=== PATIENT | female | born 1940 | race Caucasian/White ===

== ENCOUNTER → 2016-08-19 | Outpatient (CLI) | payer MEDICARE, BC | END | disposition home or self-care (01) | LOC: PCVCCLINIC 14:00 | PROVIDERS: ATTEND Internal Medicine | DX: I25.10 Atherosclerotic heart disease of native coronary artery without angina pectoris (principal); I42.9 Cardiomyopathy, unspecified; I12.9 Hypertensive chronic kidney disease with stage 1 through stage 4 chronic kidney disease, or unspecified chronic kidney disease; E78.5 Hyperlipidemia, unspecified; I33.0 Acute and subacute infective endocarditis; N18.2 Chronic kidney disease, stage 2 (mild); E11.9 Type 2 diabetes mellitus without complications; I44.7 Left bundle-branch block, unspecified; Z95.810 Presence of automatic (implantable) cardiac defibrillator; Z90.710 Acquired absence of both cervix and uterus; Z79.82 Long term (current) use of aspirin; Z79.899 Other long term (current) drug therapy; Z88.0 Allergy status to penicillin; Z88.1 Allergy status to other antibiotic agents; Z91.048 Other nonmedicinal substance allergy status; Z91.041 Radiographic dye allergy status | CPT/HCPCS: 80061; 93005; G0463 ==

== ENCOUNTER → 2017-02-21 | Outpatient (CLI) | payer MEDICARE, BC | END | disposition home or self-care (01) | LOC: PCVCCLINIC 14:04 | DX: I25.10 Atherosclerotic heart disease of native coronary artery without angina pectoris (principal); I42.8 Other cardiomyopathies; E78.5 Hyperlipidemia, unspecified; I33.0 Acute and subacute infective endocarditis; I12.9 Hypertensive chronic kidney disease with stage 1 through stage 4 chronic kidney disease, or unspecified chronic kidney disease; N18.2 Chronic kidney disease, stage 2 (mild); E11.22 Type 2 diabetes mellitus with diabetic chronic kidney disease; R94.31 Abnormal electrocardiogram [ECG] [EKG]; Z95.810 Presence of automatic (implantable) cardiac defibrillator; Z79.82 Long term (current) use of aspirin; Z79.899 Other long term (current) drug therapy | CPT/HCPCS: 80061; 93005; G0463 ==

== ENCOUNTER → 2017-07-17 | Outpatient (CLI) | payer MEDICARE, BC | END | disposition home or self-care (01) | LOC: PCVCCLINIC 12:41 | DX: I25.10 Atherosclerotic heart disease of native coronary artery without angina pectoris (principal); I12.9 Hypertensive chronic kidney disease with stage 1 through stage 4 chronic kidney disease, or unspecified chronic kidney disease; E11.22 Type 2 diabetes mellitus with diabetic chronic kidney disease; N18.2 Chronic kidney disease, stage 2 (mild); E78.5 Hyperlipidemia, unspecified; I42.8 Other cardiomyopathies; R94.31 Abnormal electrocardiogram [ECG] [EKG]; I33.0 Acute and subacute infective endocarditis; Z95.810 Presence of automatic (implantable) cardiac defibrillator; Z88.8 Allergy status to other drugs, medicaments and biological substances; Z79.899 Other long term (current) drug therapy; Z79.82 Long term (current) use of aspirin | CPT/HCPCS: 80061; 93005; G0463 ==

== ENCOUNTER → 2018-01-17 | Outpatient (CLI) | payer MEDICARE, BC | END | disposition home or self-care (01) | LOC: PCVCCLINIC 11:18 | PROVIDERS: ATTEND Internal Medicine | DX: I25.10 Atherosclerotic heart disease of native coronary artery without angina pectoris (principal); I42.8 Other cardiomyopathies; I47.2 Ventricular tachycardia; I33.0 Acute and subacute infective endocarditis; I12.9 Hypertensive chronic kidney disease with stage 1 through stage 4 chronic kidney disease, or unspecified chronic kidney disease; E11.22 Type 2 diabetes mellitus with diabetic chronic kidney disease; N18.2 Chronic kidney disease, stage 2 (mild); Z95.810 Presence of automatic (implantable) cardiac defibrillator; Z79.82 Long term (current) use of aspirin | CPT/HCPCS: 93005; G0463 ==

== ENCOUNTER → 2018-07-27 | Outpatient (CLI) | payer MEDICARE, BC ==
--- NOTE | 2018-07-27 16:44 | PCVCIMAG ---
APPROVED REPORT Study performed: 07/27/2018 13:31:17 EXAM: Comprehensive 2D, Doppler, and color-flow Echocardiogram Patient Location: Echo lab Room #: 2Status: routine BSA: 2.22 HR: 60 bpmBP: 132/70 mmHg Rhythm: LBBB Other Information Study Quality: Adequate Risk Factors: Cardiac Risk Factors: HTN Indications Pacemaker CAD Cardiomyopathy Hypertension/HDD 2D Dimensions IVSd: 8.28 (7-11mm)LVOT Diam: 23.75 (18-24mm) LVDd: 58.65 mm PWd: 8.00 (7-11mm)Ascending Ao: 32.53 (22-36mm) LVDs: 36.25 (25-40mm) Left Atrium: 46.10 (27-40mm) Aortic Root: 27.79 mm LV Single Plane 4CH: 51.97 % LV Single Plane 2CH: 38.76 % Biplane EF: 37.0 % Volumes Left Atrial Volume (Systole) Single Plane 4CH: 152.32 mLSingle Plane 2CH: 115.05 mL Biplane LA Volume: 146.00 mLLA ESV Index: 66.00 mL/m2 Aortic Valve AoV Peak Nav.: 1.22 m/s AO Peak Gr.: 5.97 mmHgLVOT Max P.64 mmHg LVOT Max V: 0.64 m/s SHEREEN Vmax: 2.32 cm2 Mitral Valve E/A Ratio: 1.3 MV Decel. Time: 127.41 ms MV E Max Nav.: 0.85 m/s MV A Nav.: 0.64 m/s IVRT: 121.11 ms TDI E/Lateral E': 6.54E/Medial E': 9.44 Medial E' Nav.: 0.09 m/s Lateral E' Nav.: 0.13 m/s Pulmonary Valve PV Peak Nav.: 0.64 m/sPV Peak Gr.: 1.64 mmHg Pulmonary Vein P Vein S: 0.30 m/sP Vein A: 0.20 m/s P Vein D: 0.41 m/sP Vein A Dur.: 90.0 msec P Vein S/D Ratio: 0.73 Tricuspid Valve TR Peak Nav.: 2.51 m/s TR Peak Gr.: 25.25 mmHg TV Vmax: 0.70 m/sPA Pressure: 32.00 mmHg Left Ventricle The left ventricle is normal size. There is normal left ventricular wall thickness. Left ventricular systolic function is borderline. LVEF is 45-50%. The left ventricular diastolic function is normal. Right Ventricle The right ventricle is normal size. ICD lead in right heart. Possible irregular bordered mass on ICD lead and/or tricuspid valve, likely representing a vegetation, previously described. The right ventricular systolic function is normal. Atria Left atrium is severely dilated. Right atrium is severely dilated. Aortic Valve Aortic valve is trileaflet, leaflets are mildly thickened. No aortic regurgitation is present. There is no aortic valvular stenosis. Mitral Valve The mitral valve is normal in structure. Possible anterior mitral leaflet vegetation, previously described Moderate mitral regurgitation. No evidence of mitral valve stenosis. Tricuspid Valve Tricuspid valve leaflets are thickened but open well. There is no tricuspid valve regurgitation noted. Pulmonic Valve The pulmonary valve is normal in structure. There is no pulmonic valvular regurgitation. Great Vessels The aortic root is normal in size. The ascending aorta is normal in size. Aortic arch is normal in caliber. IVC is normal in size and collapses >50% with inspiration. Pericardium There is no pericardial effusion. There is no pleural effusion. <Conclusion> Left ventricular systolic function is borderline. LVEF is 45-50%. The left ventricular diastolic function is normal. The right ventricle is normal size. ICD lead in right heart. Possible irregular bordered mass on ICD lead and/or tricuspid valve, likely representing a vegetation, previously described. Both atria are severely dilated. Aortic valve is trileaflet, leaflets are mildly thickened. No aortic regurgitation or stenosis The mitral valve is normal in structure. Possible anterior mitral leaflet vegetation, previously described. Moderate mitral regurgitation Pulmonary artery systolic pressure of 32 mmHg. There is no pericardial effusion.
== END | disposition home or self-care (01) ==
LOC: PCVCIMAG 15:00
PROVIDERS: ATTEND Internal Medicine
DX: I25.10 Atherosclerotic heart disease of native coronary artery without angina pectoris (principal); I42.8 Other cardiomyopathies; I47.2 Ventricular tachycardia; I12.9 Hypertensive chronic kidney disease with stage 1 through stage 4 chronic kidney disease, or unspecified chronic kidney disease; E11.22 Type 2 diabetes mellitus with diabetic chronic kidney disease; N18.2 Chronic kidney disease, stage 2 (mild); I33.0 Acute and subacute infective endocarditis; E78.5 Hyperlipidemia, unspecified; Z95.810 Presence of automatic (implantable) cardiac defibrillator; Z79.82 Long term (current) use of aspirin
CPT/HCPCS: 36415; 80061; 93005; 93284; 93306; G0463